=== PATIENT | female | born 1975 ===

== ENCOUNTER 2018-04-22 09:41 | Outpatient (CLI) | payer OTHER | END 2018-04-22 09:42 | disposition home or self-care (01) | LOC: C.MAMMO 09:41 | DX: Z12.39 Encounter for other screening for malignant neoplasm of breast (principal) ==

== ENCOUNTER 2018-05-06 12:01 | Outpatient (CLI) | payer OTHER | END 2018-05-06 12:02 | disposition home or self-care (01) | LOC: C.MAMMO 12:02 ==